=== PATIENT | female | born 1995 | race American Indian/Alaskan Native ===

== ENCOUNTER 2017-04-15 21:39 | Emergency (ER) | payer SELFPAY ==
[2017-04-15 22:33] VITALS: BP 116/83
[2017-04-15] MEDS ORDERED: TYLENOL PO ONE (22:33)
[2017-04-15] MEDS ORDERED: TYLENOL ONE (22:34)
== END 2017-04-15 23:00 | disposition left against medical advice (07) ==
LOC: ED 21:39
DX: R51 Headache (principal); Z53.21 Procedure and treatment not carried out due to patient leaving prior to being seen by health care provider; W18.00XA Striking against unspecified object with subsequent fall, initial encounter; Y93.89 Activity, other specified; Y99.8 Other external cause status; Y92.89 Other specified places as the place of occurrence of the external cause